=== PATIENT | female | born 1965 | race Caucasian/White ===

== ENCOUNTER 2016-04-16 18:43 | Inpatient (IN) | payer OTHER ==
--- NOTE | ~2016-04-16 | PN ---
Unit #: [id number] #: [id number] Patient: RICO ARROYO [id number] [facility] [address] [place] [address] [id number] MR#: [id number] NAME: RICO ARROYO ROOM: [facility] Age: 51 Sex: F Admission Date: 04/16/2016 : 1965 Attending Physician: Johnathon Thayer M.D. Admitting Physician: Johnathon Thayer M.D. Primary Care Physician: Primary Care Physician Yue PYLE NOTES DATE 04/19/2016 DISCUSSION The patient seems a bit brighter and more active in the therapeutic milieu. She reports "the Prozac is working good." We continue her current treatment but she does continue to complain of some anxiety and symptoms of detox. Dictated by... Johnathon Thayer M.D. CB/shraddha TD: 04/19/2016 16:30 JOB #: [id number] JARRELL PROGRESS NOTES X Johnathon Thayer MD PROGRESS NOTE
--- NOTE | ~2016-04-16 | DS ---
Unit #: [id number] #: [id number] Patient: RICO ARROYO [id number] [place] [address] [id number] MR#: [id number] NAME: RICO ARROYO ROOM: [facility] Age: 51 Sex: F Admission Date: 04/16/2016 : 1965 Discharge Date: 04/21/2016 Attending Physician: Johnathon Thayer M.D. Primary Care Physician: Primary Care Physician No DISCHARGE SUMMARY REASON FOR ADMISSION The patient is a 51-year-old white female, admitted to the [facility] unit for heroin detox. HOSPITAL COURSE The patient was admitted to the [facility] unit and placed on routine detoxification for heroin. She was continued on previously prescribed fluoxetine and pantoprazole. Gabapentin was discontinued. The patient was generally pleasant and cooperative, and exhibited improvement in her symptoms of withdrawal as she stayed in the past. By 04/21/2016, the patient was agreeable with plan for followup in the intensive outpatient program provided by this facility and discharge was ordered. FINAL DIAGNOSES Opioid use disorder; mood disorder, unspecified; gastroesophageal reflux disease. DISPOSITION ON DISCHARGE The patient is discharged on the following on the following medications; Prozac 40 mg daily for depression, Protonix 40 mg once daily for GERD, Lipitor 20 mg daily for dyslipidemia. DISCHARGE INSTRUCTIONS No dietary or physical restrictions were placed upon the patient at the time of discharge. FOLLOWUP Followup will take place through the auspices of the chemical dependency intensive outpatient program provided by this facility. PROGNOSIS The patient's prognosis is considered fair. Dictated by... Johnathon Thayer M.D. CB/pilar TD: 04/21/2016 23:00 JOB #: [id number] Unit #: [id number] #: [id number] Patient: RICO ARROYO DISCHARGE SUMMARY X Johnathon Thayer MD X DISCHARGE SUMMARY
--- NOTE | ~2016-04-16 | PN ---
Unit #: [id number] #: [id number] Patient: RICO ARROYO [id number] [facility] [address] [place] [address] [id number] MR#: [id number] NAME: RICO ARROYO ROOM: [facility] Age: 51 Sex: F Admission Date: 04/16/2016 : 1965 Attending Physician: Johnathon Thayer M.D. Admitting Physician: Johnathon Thayer M.D. Primary Care Physician: Primary Care Physician Yue VIEYRA PROGRESS NOTES DATE 04/20/2016 DISCUSSION The patient is in brighter spirits today and reports that she is feeling much better as her detoxification progresses. She offers no new complaints and should be ready for discharge as early as tomorrow should she sustain progress. Dictated by... Johnathon Thayer M.D. CB/bzg TD: 04/20/2016 14:43 JOB #: [id number] [facility] PROGRESS NOTES X Johnathon Thayer MD PROGRESS NOTE
--- NOTE | ~2016-04-16 | PA ---
Unit #: [id number] #: [id number] Patient: RICO ARROYO [id number] [place] [address] [id number] I MR#: [id number] NAME: RICO ARROYO ROOM: [facility] Age: 51 Sex: F Admission Date: 04/16/2016 : 1965 Date of Assessment: 04/17/2016 Attending Physician: Johnathon Thayer M.D. Admitting Physician: Johnathon Thayer M.D. Primary Care Physician: Primary Care Physician No PSYCHIATRIC ASSESSMENT IDENTIFYING INFORMATION The patient is a 51-year-old white female with a history of intravenous heroin abuse. She is admitted complaining of depressed mood and ongoing heroin use. INFORMANT(S) The patient, reliability is fair. CHIEF COMPLAINT None given. HISTORY OF PRESENT ILLNESS The patient is a 51-year-old white female who reports no previous admissions to this facility. She has been treated at [facility] in the past. She has a six year history of intravenous heroin use and is now homeless. Her is also at this facility under similar circumstances. They had presented together yesterday. The patient reports that she receives disability for her "manic depression". She reports that she has seen Dr. Louie Arriaga in the past and has taken Wellbutrin though her chart indicates that she is taking gabapentin, pantoprazole and fluoxetine only. The patient complains that "the medicine isn't helping my depression." She was reporting positive suicidal ideation with a plan to hang herself or cut her wrist or overdose. The patient denies prior suicide but does have a history of previous suicide attempt by means of overdose. The patient and her are currently homeless secondary to their substance use. PAST PSYCHIATRIC HISTORY As above. PAST MEDICAL HISTORY The patient suffers from GERD and neck surgery in the past. MEDICATIONS 1. Gabapentin 2. Pantoprazole 3. Fluoxetine ALLERGIES None. FAMILY HISTORY Noncontributory Unit #: [id number] #: [id number] Patient: RICO ARROYO SOCIAL HISTORY The patient is currently homeless. She does not work outside of the home stating that she is receiving disability for her "manic depression." MENTAL STATUS EXAMINATION At this time reveals the patient to be an obese white female appearing her stated age. She appears to be in moderate physical distress with opiate withdrawal during interview. She is awake, alert, and oriented in all spheres. Her mood is mildly dysphoric. Her affect constricted. Speech is generally relevant and coherent. There are no gross deficits in memory or cognition noted. Intelligence is judged to be in the average range based on fund of knowledge. The patient is generally cooperative throughout the interview. She continues to endorse positive suicidal ideation. She denies homicidal ideation. She denies any psychotic symptoms. Her judgement and insight appear to be reasonably intact. ASSETS AND LIABILITIES ASSETS: To be assessed. LIABILITIES: Lack of resources, homelessness. DIAGNOSTIC IMPRESSION 1. Dysthymic disorder 2. Opioid use disorder 3. Gastroesophageal reflux disease 4. Obesity PSYCHIATRIC PLAN/TREATMENT GOALS The patient remains hospitalized for safety and stabilization. We will restart previously prescribed Bentyl, pantoprazole and fluoxetine. I have spoken frankly with the patient regarding the fact that no antidepressant or other medication will be affectively address her symptoms as long as she continues to abuse intravenous heroin and suffer the life circumstances related thereto i.e. living in her car with her . The patient seems understanding of this. ESTIMATED LENGTH OF STAY Three to five days. Dictated by... Johnathon Thayer M.D. ROWENA/lyndon TD: 04/17/2016 21:11 JOB #: [id number] Unit #: [id number] #: [id number] Patient: RICO ARROYO PSYCHIATRIC ASSESSMENT X Johnathon Thayer MD X PSYCHIATRIC ASSESSMENT
--- NOTE | ~2016-04-16 | HP ---
Unit #: [id number] #: [id number] Patient: RICO ARROYO [id number] [place] [address] [id number] MR#: [id number] NAME: RICO ARROYO ROOM: [facility] Age: 51 Sex: F Admission Date: 04/16/2016 : 1965 Attending Physician: Johnathon Thayer M.D. Admitting Physician: Johnathon Thayer M.D. Primary Care Physician: Primary Care Physician No HISTORY AND PHYSICAL HISTORY OF PRESENT ILLNESS Rico is a 51-year-old female admitted on 04/16/2016 to [facility] for detox from heroin. PAST MEDICAL HISTORY 1. Obesity 2. Chronic back pain 3. Arthritis PAST SURGICAL HISTORY Neck surgery with (:26) haim placement and a low back surgery due to degenerative disc disease. SOCIAL HISTORY Smokes one pack of cigarettes daily, no alcohol use. Does report a history of heroin Use. She is currently and living with her . FAMILY HISTORY Noncontributory. REVIEW OF SYSTEMS CONSTITUTIONAL: No fever or chills. HEENT: Denies any sore throat, ear pain or runny nose. CARDIOVASCULAR: Denies chest pain, irregular heart rhythm or palpitations. CHEST: Denies shortness of breath or cough. No hemoptysis. GASTROINTESTINAL: Denies nausea, vomiting, diarrhea or chronic constipation. ENDOCRINE: Denies history of increased thirst or urination. No recent significant weight loss or gain. GENITOURINARY: Denies dysuria, frequency, or hematuria. SKIN: Denies any rashes. HEMATOLOGIC: Denies history of increased bleeding or bruising. MUSCULOSKELETAL: Denies any hot, swollen joints. No generalized muscle pain. NEUROLOGIC: Denies problems with vision or speech. No frequent, severe headaches. No numbness, tingling or weakness in any extremities. Denies loss of bladder or bowel control. CURRENT MEDICATIONS 1. Pantoprazole 2. Fluoxetine Unit #: [id number] #: [id number] Patient: RICO ARROYO ALLERGIES No known drug allergies. PHYSICAL EXAMINATION GENERAL: Alert, oriented, in no acute distress. VITAL SIGNS: Blood pressure 145/90, heart rate 79, respirations 16. HEIGHT: 5 foot0 inches. WEIGHT: 175 pounds. SKIN: Warm and dry without rash or lesion. HEENT: Normocephalic. TMs not viewed. Oral and nasal passages clear. Conjunctivae clear. PERRLA. EOMs intact. NECK: Supple without lymphadenopathy or thyromegaly. HEART: Regular rate and rhythm without murmur. LUNGS: Clear. ABDOMEN: Soft, nontender, without masses or hepatosplenomegaly. : Not done. EXTREMITIES: No evidence of cyanosis, clubbing or edema. Moves all without focal deficit. NEUROLOGICAL: Grossly within normal limits. Cranial Nerves: II: Visual kapoor are intact. III, IV AND : Extraocular movements are intact. Pupils are equal, round and reactive to light. V: Facial sensation is grossly normal. VII: Facial movements and expression are normal. VIII: Auditory acuity grossly intact. IX, X: Uvula is midline. Phonation is normal. XI: Patient shrugs shoulders and turns head normally. XII: Tongue protrudes in the midline. Sensory and Motor Function: Sensory and motor sensation is grossly normal. Motor: moves all extremities well. Coordination: Gait is normal. Deep Tendon Reflexes: Intact. IMPRESSION 1. Psychiatric admission. 2. Obesity. 3. Chronic back pain. 4. Arthritis. RECOMMENDATIONS Psychiatric, per psychiatrist. MEDICAL: I see no contraindications to participating in facility's activities. MEDICAL PROGNOSIS Good. MEDICAL CONDITION Stable. Dictated by... Lucian Hidalgo/lyndon Unit #: [id number] #: [id number] Patient: RICO ARROYO TD: 04/18/2016 00:21 JOB #: [id number] HISTORY AND PHYSICAL X AYDE ARTIS APRN X HISTORY AND PHYSICAL
[~2016-04-16 18:43] MED LIST: CYMBALTA; LODINE; LORTAB 7.5-5001 TAB; MOBIC PO; MULTI-VITAMIN1 TAB; PERCOCET10 PO; PROZAC PO
[2016-04-18 12:33] LABS: BASOPHIL% 0.7 % (0-2.5); EOSINOPHIL# 0.1 X10e3 (0-0.7); EOSINOPHIL% 2.2 % (0.0-7.0); HEMATOCRIT 43.3 % (35.0-45.0); HEMOGLOBIN 14.5 gm/dL (12.0-16.0); LYMPHOCYTE# 2.1 X10e3 (1.0-3.5); LYMPHOCYTE% 30.7 % (17.0-45.0); MEAN CELL VOLUME 85.8 FL (83-96); MEAN CORPUSCULAR HEMOGLOBIN 28.8 PG (28-34); MEAN CORPUSCULAR HGB CONC 33.5 g/dL (30-36); MEAN PLATELET VOLUME 8.6 FL (6.5-11.5); MONOCYTE# 0.4 X10e3 (0-1.0); MONOCYTE% 5.4 % (3.0-12.0); NEUTROPHIL# 4.2 X10e3 (1.5-7.1); PLATELET COUNT 201 X10e3 (140-420); RED BLOOD COUNT 5.04 X10e (3.90-5.30); WHITE BLOOD COUNT 6.9 X10e3 (4.0-10.5)
[2016-04-18 12:36] LABS: DIFF IND NO
[2016-04-18 12:54] LABS: ALBUMIN SERUM 3.8 g/dL (3.5-5.0); ALKALINE PHOSPHATASE 82 U/L (32-92); ALT (SGPT) 10 U/L (10-40); AST (SGOT) 12 U/L (10-42); BILIRUBIN,TOTAL 0.5 mg/dL (0.2-2.0); BLOOD UREA NITROGEN 13 mg/dL (9-23); CALCIUM SERUM 9.3 mg/dL (8.4-10.2); CARBON DIOXIDE 26 mmol/L (22-31); CHLORIDE 102 mmol/L (100-111); GLOM FILT RATE Estimated ABOVE60 mL/min (>60); GLUCOSE FASTING 96 mg/dL (70-110); POTASSIUM 4.1 mmol/L (3.5-5.1); PROTEIN TOTAL SERUM 6.7 g/dL (6.0-8.3); SODIUM 138 mmol/L (135-145)
[2016-04-18 12:56] LABS: THYROID STIMULATING HORMONE 1.15 uIU/ml (0.34-5.60)
[2016-04-18 13:03] LABS: FREE THYROXIN (T4) 0.89 ng/dL (0.58-1.64)
[2016-04-19 09:48] LABS: URINE APPEARANCE CLEAR; URINE BILIRUBIN NEG (NEG); URINE BLOOD NEG (NEG); URINE COLOR YELLOW; URINE GLUCOSE NEG (NEG); URINE KETONE NEG (NEG); URINE LEUKOCYTE ESTERASE NEG (NEG); URINE NITRATE NEG (NEG); URINE PH 6.5 (5-8); URINE PROTEIN NEG (NEG); URINE SPECIFIC GRAVITY 1.009 (1.003-1.035); URINE UROBILINOGEN 0.2 MG/DL (NEG)
[2016-04-19 10:53] LABS: AMPHETAMINE NEG (NEG); BARBITURATES NEG (NEG); BENZODIAZEPINES NEG (NEG); COCAINE NEG (NEG); MARIJUANA NEG (NEG); OPIATES NEG (NEG); TRICYCLIC ANTIDEPRESSANTS NEG (NEG); U METHADONE NEG (NEG)
[2016-04-21 21:45] LABS: HA AB IGM (HEPPAN) Nonreactive (Nonreactive); HB CORE AB IGM (HEPPAN) Nonreactive (Nonreactive); HB S AG (HEPPAN) Nonreactive (Nonreactive); HEP C AB (HEPPAN) Reactive (Nonreactive)
== END 2016-04-21 16:15 | disposition home or self-care (01) | DRG 897 ==
LOC: P1E 18:43 → POF 04-19 12:40 → P1E 04-19 12:43
PROVIDERS: Specialist
PROC: HZ2ZZZZ Detoxification Services for Substance Abuse Treatment (ICD-10-PCS; principal; 2016-04-16)
DX: F11.20 Opioid dependence, uncomplicated (principal); E66.9 Obesity, unspecified; K21.9 Gastro-esophageal reflux disease without esophagitis; F17.210 Nicotine dependence, cigarettes, uncomplicated; M19.90 Unspecified osteoarthritis, unspecified site; G89.29 Other chronic pain; M54.9 Dorsalgia, unspecified; F34.1 Dysthymic disorder; Z59.0 Homelessness
CPT/HCPCS: 80053; 80074; 80307; 81003; 84439; 84443; 84703; 85025; 86592; 87522; 87806; 90688

== ENCOUNTER 2016-08-26 15:42 | Emergency (ER) | payer OTHER ==
[~2016-08-26] VITALS: Ht 152.4 cm; Wt 79.4 kg
--- NOTE | ~2016-08-26 | CR141 ---
[facility] A Service of [facility] & [facility] RADIOLOGY TEXT RESULTS PATIENT: RICO ARROYO LOCATION: CFTX : [birth year] UNIT #: [id number] AGE: [address]: Marcia Harley SEX: F ORDER DR: [id number] [facility] [address] [place], [place] [address] [id number] MR#: [id number] Acc #: [id number] NAME: RICO ARROYO : 1965 SEX: F STUDY DATE/TIME: 08/26/2016 17:02 UNIT: CFTX ROOM: STUDY DESCRIPTION: CR Hand Min 3 Views Lt Attending Physician: Marcia Harley Pa-C Referring Physician: Vimal Smith M.D. Ordering Physician: Ed Delmer Roca M.D. Primary Care Physician: Generic Doctor Not In System MEDICAL IMAGING REPORT This report is preliminary unless electronic signature is present EXAM Left hand 3 views. HISTORY Posterior hand pain for 2 days. Swelling of second and third digits. FINDINGS Three views of the left hand demonstrate soft tissue swelling over the dorsum of the hand. Bone alignment is normal. 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 Accessory ossicle adjacent to the ulnar styloid process. No fracture or opaque foreign body. IMPRESSION 1. Soft tissue swelling over the dorsum of the hand. 2. No fracture or opaque foreign body. 3. 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 Dictated by... Kaveh Delgado M.D. THIS IS AN ELECTRONICALLY VERIFIED REPORT Kaveh Delgado M.D. at 08/26/2016 11:47 PM ORACIO/nam TD: 08/26/2016 22:30 JOB #: [id number] MEDICAL IMAGING REPORT Page 1 of 1 COPY
== END 2016-08-26 17:43 | disposition home or self-care (01) ==
LOC: CED 15:42 → CFTX 15:42
DX: L02.512 Cutaneous abscess of left hand (principal); F17.200 Nicotine dependence, unspecified, uncomplicated; Z98.890 Other specified postprocedural states
CPT/HCPCS: 10060; 73130; 99283

== ENCOUNTER 2016-08-30 13:24 | Emergency (ER) | payer OTHER ==
[~2016-08-30] VITALS: Ht 152.4 cm; Wt 73.9 kg
== END 2016-08-30 14:35 | disposition home or self-care (01) ==
LOC: CED 13:24 → CFTX 13:24
DX: Z48.01 Encounter for change or removal of surgical wound dressing (principal); E66.9 Obesity, unspecified; F17.210 Nicotine dependence, cigarettes, uncomplicated
CPT/HCPCS: 96372; 99282